=== PATIENT | female | born 1980 | race African-American/Black ===

== ENCOUNTER 2020-02-07 08:40 | Emergency (ER) | payer SELFPAY ==
[~2020-02-07] VITALS: Ht 149.9 cm; Wt 113.6 kg
[2020-02-07 08:45] VITALS: BP 184/94; PULSE 96; TEMP 97.9
== END 2020-02-07 09:10 | disposition left against medical advice (07) ==
LOC: COL.ER 08:40
DX: M79.672 Pain in left foot (principal)

== ENCOUNTER 2020-02-15 00:49 | Emergency (ER) | payer SELFPAY ==
[~2020-02-15] VITALS: Ht 149.9 cm; Wt 111.4 kg
[2020-02-15 00:55] VITALS: BP 207/117; PULSE 103; TEMP 98.6
== END 2020-02-15 01:05 | disposition left against medical advice (07) ==
LOC: COL.ER 00:49
DX: R45.89 Other symptoms and signs involving emotional state (principal)

== ENCOUNTER 2023-06-27 08:41 | Emergency (ER) | payer SELFPAY ==
[~2023-06-27] VITALS: Ht 149.9 cm; Wt 93.6 kg
[2023-06-27 09:05] VITALS: BP 206/128; PULSE 107; TEMP 98.1
== END 2023-06-27 09:20 | disposition left against medical advice (07) ==
LOC: COL.ER 08:41
DX: Z00.8 Encounter for other general examination (principal)